=== PATIENT | female | born 1990 | race Hispanic/Latino ===

== ENCOUNTER 2016-08-10 00:26 | Emergency (ER) | payer MEDICAID, SELFPAY ==
[2016-08-10] MEDS ORDERED: Ondansetron HCl/PF 4 MG/2 ML Vial ONE (01:04)
[2016-08-10 01:18] LABS: Anion Gap 11 mmol/L (10-20); BUN (Urea Nitrogen) 14 mg/dL (7.0-18.7); Calc. Creatinine Clearance 0 mL/min (70-130); Calcium 8.9 mg/dL (7.8-10.44); Carbon Dioxide 24 mmol/L (22-29); Chloride 107 mmol/L (98-107); Estimated GFR-MDRD 81
[2016-08-10 01:22] LABS: #Basophils 0.2 thou/uL (0.0-0.2); #Eosinphils 0.3 thou/uL (0.0-0.7); #Lymphocytes 3.5 thou/uL (1.20-3.40); #Monocytes 0.8 thou/uL (0.11-0.59); #Neutrophils 7.2 thou/uL (1.40-6.50); %Basophils 1.3 % (0.0-1.0); %Eosinophils 2.7 % (0.0-10.0); %Lymphocytes 29.1 % (21.0-51.0); %Monocytes 6.6 % (0.0-10.0); Hematocrit 40.9 % (36.0-47.0); Red Blood Cell (RBC) Count 4.38 mill/uL (4.20-5.40)
[2016-08-10 01:30] LABS: Bilirubin Negative (Negative); Blood, Urine Negative (Negative); Glucose, Urine (Dipstick) Negative (Negative); Ketone, Urine Negative (Negative); Nitrite Negative (Negative); Protein, Urine (Dipstick) Negative (Neg-Trace); Urobilinogen 0.2 mg/dL (0.2-1.0)
[2016-08-10] MEDS ORDERED: HYDROcodone/Acetaminophen 10/325 mg Tablet ONE (02:35)
[2016-08-10] MEDS ORDERED: Ketorolac Tromethamine 30 MG/ML VIAL ONE (02:35)
--- NOTE | 2016-08-10 08:25 | CT ---
PRELIMINARY REPORT/[facility]/EMERGENCY AFTER HOURS PROCEDURE: EXAM: CT Abdomen and Pelvis Without Intravenous Contrast. 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 ; Additional info: No urinary symptoms, vaginal bleeding or vaginal discharge. Preg test neg TECHNIQUE: Axial computed tomography images of the abdomen and pelvis without intravenous contrast. Coronal and sagittal reformatted images were created and reviewed. COMPARISON: No relevant prior studies available. FINDINGS: The lung bases are clear. Right kidney: No intrarenal stone, hydronephrosis or visible mass. No hydroureter or visible ureteral stone. Left kidney: No intrarenal stone, hydronephrosis or visible mass. No hydroureter or visible ureteral stone. No definite gallbladder abnormality by CT. No biliary tree dilation. Unremarkable appearance of the liver, spleen, adrenal glands, and pancreas. No free air, ascites, or bowel distention. No retroperitoneal adenopathy. CT pelvis: Possibly some mild diffuse urinary bladder wall thickening. The bladder is almost empty which limits evaluation. While nonspecific, this could indicate evidence for cystitis. Please correlate clinically. Reportedly, there has been prior appendectomy. There are no CT findings to strongly suggest diverticulitis. Small amount of cul-de-sac fluid. No definite adnexal cyst or mass by CT. IMPRESSION: No renal or ureteral calculus. No hydronephrosis or hydroureter. Possible mild urinary bladder wall thickening, see above. No CT findings to suggest diverticulitis. No free air or bowel distention. Small amount of cul-de-sac fluid. No definite adnexal cyst or mass by CT. Other details discussed above. Thank you for allowing us to participate in the care of your patient. Dictated and Authenticated by: Timbo Ying MD 08/10/2016 2:15 AM Central Time ([place] \T\ [place]) FINAL REPORT CT STONE PROTOCOL: HISTORY: Left lower quadrant pain, 20-30 minutes ago. SURGICAL HISTORY: Appendectomy. TECHNIQUE: CT abdomen and pelvis performed without contrast per stone protocol. FINDINGS: Minimal atelectatic changes in lung bases. Heart size is normal. No nephroureteral lithiasis or hy droureteronephrosis. Prior appendectomy. There is gas within the vaginal vault. No dilated loops of large or small bowel. Noncontrast evaluation of the liver, spleen, pancreas, ga llbladder, and adrenal glands is normal. The skeleton is unremarkable. IMPRESSION: 1. No nephroureteral lithiasis or hydroureteral nephrosis. No secondary evidence of recently passe d stone. 2. No acute findings of the abdomen or pelvis. POS: [facility]
== END 2016-08-10 02:57 | disposition home or self-care (01) ==
LOC: NAV ERS 00:26
DX: R10.2 Pelvic and perineal pain (principal); J45.909 Unspecified asthma, uncomplicated; Z87.891 Personal history of nicotine dependence
CPT/HCPCS: 74176; 80048; 81003; 84703; 85025; 87491; 87591; 96361; 96374; 96375; J1885; J2270; J2405

== ENCOUNTER 2019-04-29 08:50 | Emergency (ER) | payer MEDICAID, SELFPAY ==
[2019-04-29] MEDS ORDERED: diphenhydrAMINE 25 MG CAP ONE (09:36)
== END 2019-04-29 10:47 | disposition home or self-care (01) ==
LOC: NAV ERS 08:50
DX: L25.9 Unspecified contact dermatitis, unspecified cause (principal); J45.909 Unspecified asthma, uncomplicated; Z87.891 Personal history of nicotine dependence
CPT/HCPCS: 99282; Q0163

== ENCOUNTER 2021-03-25 15:55 | Emergency (ER) | payer OTHER ==
[2021-03-25] MEDS ORDERED: Fentanyl 100 MCG/2 ML VIAL ONE (16:10)
== END 2021-03-25 16:42 | disposition home or self-care (01) ==
LOC: NAV ERS 15:55
DX: S83.005A Unspecified dislocation of left patella, initial encounter (principal); J45.909 Unspecified asthma, uncomplicated; Z87.891 Personal history of nicotine dependence; X58.XXXA Exposure to other specified factors, initial encounter
CPT/HCPCS: 27560; 96374; J3010